=== PATIENT | female | born 1945 | race Caucasian/White ===

== ENCOUNTER 2023-04-16 09:55 | Emergency (ER) | payer MEDICARE, SELFPAY ==
[2023-04-16 10:07] VITALS: BP 167/87
--- NOTE | 2023-04-16 11:15 | ED.GENMED ---
History of Present Illness
<Stephy Avila PA-C - Last Filed: 04/16/23 17:21>
General
Chief Complaint: Musculo-Skeletal Complaint
Source: patient
Exam Limitations: none
Time Seen by Provider: 04/16/23 11:14
Nursing documentation reviewed up to this point in time: agreed with
Travel History
Have you had any contact with someone who has COVID-19?: Yes
Comment: covid+
Do you have any symptoms of coronavirus? Fever > 100 degrees, chills, cough, shortness of breath, sore throat, loss of taste or smell, muscle aches, or headache?: Yes
Symptoms:: cough cold
History of Present Illness
History of Present Illness:
78-year-old female with a past medical history of hypertension, CAD who presents to the emergency department today with right leg pain, right ankle pain, and right hip pain following a fall. She states that she was walking down the stairs in her
home in slippers when slipped and fell back on right side and subsequently slid down the stairs. She states that her right leg was bent behind her and she states that due to the pain, she was unable to get herself up at that time. Patient states
that she was on the ground for around 45 minutes before family came to help her. Once her family came, they helped her up and she was able to walk on her own without difficulty. She does state that she feels like when she walks, her right leg will
feel like it is going to 'give out'. At rest, she has no pain but does have pain when bearing weight. She denies her head loss of conscious, nausea, neck pain, abdominal pain. She does take 1 aspirin daily but is on no anticoagulants. She did test
positive for COVID yesterday and currently admits to a moderate headache and nausea as a result. She states that whenever she tries to eat or drink, feels very nauseated and will gag. Patient denies trouble breathing, chest pain. Patient denies
sore throat. Patient is also complaining of low back pain which is chronic for her. Patient requesting new follow-up for her pain because it has not been well-controlled for a period of time.
Review of Systems
<Stephy Avila PA-C - Last Filed: 04/16/23 17:21>
Review of Systems
All Other Systems: ROS reviewed and negative except as documented in HPI and ROS
Phy Exam
<Stephy Avila PA-C - Last Filed: 04/16/23 17:21>
Physical Exam
Physical Exam:
General: Patient is well-appearing and in no acute distress
Skin: Warm and dry, scattered abrasions on the right ankle
Head: Normocephalic, atraumatic
Cardiac: Regular rate, no murmurs
Peripheral vascular: There is 2+ dorsalis pedis and posterior bilaterally, brisk cap refill in bilateral lower extremities
Pulm: Normal respiratory effort, no wheezes, rales, or rhonchi
Abdomen: No tenderness palpation
Musculoskeletal: Patient has tenderness with varus movement of the right ankle but no point tenderness of the lateral or medial malleolus. Anterior drawer testing of right ankle negative. No pain of the right hip with passive range of motion. No
tenderness to palpation of the right hip joint.
Neuro: patient awake and alert, CN II-XII intact, no focal neurologic defecits.
Course
<Stephy Avila PA-C - Last Filed: 04/16/23 17:21>
Orders/Labs/Results
Orders:
Orders
04/16/23 11:25
CR Hip - RT w/wo Pel 2-3 Vw* Urgent
Comment:
Reason For Exam: right hip pain following fall
Include a pelvis x-ray?: Yes
04/16/23 11:33
Acetaminophen [Tylenol] 650 mg PO NOW STA
CR Ankle - Right Min 3 Views * Urgent
Reason For Exam: right ankle pain following fall
04/16/23 11:37
Ondansetron HCl [Zofran] 4 mg PO NOW STA
04/16/23 12:35
Sumatriptan Succinate [Imitrex] 6 mg SC NOW STA
04/16/23 14:25
Case Management Consult ONCE
Case Management Consult: Discharge Planning
Vital Signs
Initial and Last Documented VS:
Initial Vital Signs
Temp Pulse Resp BP Pulse Ox
100.0 F 89 16 167/87 93
04/16/23 10:07 04/16/23 10:07 04/16/23 10:07 04/16/23 10:07 04/16/23 10:07
Last Documented Vital Signs
Temp Pulse Resp BP Pulse Ox
100.0 F 100 18 153/72 93
04/16/23 10:07 04/16/23 14:56 04/16/23 14:56 04/16/23 14:56 04/16/23 14:56
<Michel Cole MD - Last Filed: 04/16/23 18:52>
Orders/Labs/Results
Orders:
Orders
04/16/23 11:25
CR Hip - RT w/wo Pel 2-3 Vw* Urgent
Comment:
Reason For Exam: right hip pain following fall
Include a pelvis x-ray?: Yes
04/16/23 11:33
Acetaminophen [Tylenol] 650 mg PO NOW STA
CR Ankle - Right Min 3 Views * Urgent
Reason For Exam: right ankle pain following fall
04/16/23 11:37
Ondansetron HCl [Zofran] 4 mg PO NOW STA
04/16/23 12:35
Sumatriptan Succinate [Imitrex] 6 mg SC NOW STA
04/16/23 14:25
Case Management Consult ONCE
Case Management Consult: Discharge Planning
Vital Signs
Initial and Last Documented VS:
Initial Vital Signs
Temp Pulse Resp BP Pulse Ox
100.0 F 89 16 167/87 93
04/16/23 10:07 04/16/23 10:07 04/16/23 10:07 04/16/23 10:07 04/16/23 10:07
Last Documented Vital Signs
Temp Pulse Resp BP Pulse Ox
100.0 F 100 18 153/72 93
04/16/23 10:07 04/16/23 14:56 04/16/23 14:56 04/16/23 14:56 04/16/23 14:56
Consults
<Stephy Avila PA-C - Last Filed: 04/16/23 17:21>
Consults
Consults for patient: Case Management
<Stephy Avila PA-C - Last Filed: 04/16/23 17:21>
MDM/Problems Addressed
Differential Diagnosis Includes:
right ankle pain/hip pain: right ankle fracture, right ankle sprain/strain
headache: tension headache, migraine headache, dehydration
MDM/Problems Addressed:
headache
right ankle pain
right hip pain
Chronic conditions affecting care: HTN and CAD
Acute Exacerbation and/or Progression of Chronic Illness: HTN
<Stephy Avila PA-C - Last Filed: 04/16/23 17:21>
*Radiology
Radiology exam reviewed: radiology read reviewed
*Pulse Oximetry
Patient hypoxic: no
*Critical Care Note
Total Time (30-74mins, 75-104mins- exclusive of procedures): Not Applicable
Data Reviewed
Review of Other/Old Records Reveals: Records (Reviewed history and physical from PCP on 11/24/2017)
Source: patient and family
Prescriptions/Medications Considered But Not Given:
n/a
Further Testing Considered But Not Given:
FALL: This is a 78-year-old female with a past medical history of hypertension, CAD who is presenting to the emergency department today with right hip right ankle pain following a fall down the stairs. On physical exam, she is well appearing, and
has to pain with passive movement of the hip. She has some mild pain with varus/valgus movement of the ankle. She has some scattered abrasions on the lateral aspect of her right foot. She has no swelling or obvious deformity. Intact pulses and
sensation. X-rays show no acute fracture. Patient was able to walk without difficulty with nursing. Patient lives in a two-story home with her who also has mobility issues, case management came to see the patient to help set up a PT home
eval. However, patient saw PT a few months ago for her back and will follow up with them for an updated eval. Patient states that her lower back pain has been poorly controlled for many years and is now requesting follow up. I gave patient follow up
with Dr. Hernández and patient will make an appointment soon.
HEADACHE/NAUSEA/COVID STATUS: Initially attempted to treat headache with Tylenol however patient refuses and states that she needs something stronger. We gave her 1 Imitrex which significantly improved her symptoms and resolved her headache.
Patient has also had nausea difficulty tolerating p.o. intake associated with her COVID-positive status. We did give patient Zofran here in the emergency department. After this, patient states that she feels a lot better and has been able to
tolerate p.o. intake here without any difficulties. Patient has not had any episodes of vomiting here in the department. She is stable or discharge at this point. She has been sent home with zofran and Imitrex
<Stephy Avila PA-C - Last Filed: 04/16/23 17:21>
Update Note
Update Note:
Patient refused Tylenol for her headache. Patient given Imitrex. Patient states that PO intake makes her nauseous. Zofran given and will trial PO intake.
1:40 pm-- nursing notes that patient is able to tolerate PO fluids well. Her x-rays do not show any evidence of fracture. Nursing was able to walk patient and patient was able to walk without any difficulties
ED Attending Note
<Stephy Avila PA-C - Last Filed: 04/16/23 17:21>
-
Portions of this chart may have been created with voice recognition software.� Occasional wrong word or��sound alike� substitutions may have occurred due to the inherent limitations of voice recognition software.
<Michel Cole MD - Last Filed: 04/16/23 18:52>
ED Attending Note
Patient seen and examined by attending physician: Yes
ED Attending Note:
Patient presents to ED for evaluation secondary to right leg pain after losing balance and falling onto her side, while walking down the steps this morning. Of note, patient recently tested positive for COVID-19, which has caused decreased appetite
and exacerbation of her migraine headache, unrelieved with [id number] medications. Denies vomiting or diarrhea. Denies coughing. Denies sore throat. Denies chest pain or shortness of breath. Denies loss of sensation or weakness. Denies
back pain. Denies head injury from the fall.
Physical Exam
General: mild painful distress, not acutely ill. afebrile
Head: nc/at. eomi
Neck: supple. no meningeal signs.
Heart: s1/s2 regular rate and rhythm, no murmur. equal radial pulses.
Lungs: no acute respiratory distress. clear bilaterally
Abdomen: normal bowel sounds. not tender.
Neuro: alert and oriented. no focal neurological deficits
Skin: abrasion noted over right malleolus with minimal tenderness.
Psychiatric: well kept. interactive and cooperative
Extremities: no edema. no calf tenderness. hip able to be ranged without tenderness. negative straight leg raise test.
X-ray: No acute findings.
Headache with significant improvement after Imitrex administration. Patient is able to ambulate independently with steady gait prior to discharge. Patient will be discharged home in stable condition, to the care of her family, with recommendation
to follow-up with PCP as an outpatient.
Visiting RN offered to patient and family. However, as patient already has an outpatient PT set up, will just follow-up as an outpatient.
Discharge Plan
Departure
Patient Disposition: Home (Routine Discharge)
Date of Disposition: 04/16/23
Time of Disposition: 14:27
Patient with high blood pressure during this ER visit?: Yes
Condition: Good
Discharge Problem:
COVID-19, Fall
Instructions: COVID-19 (DC), BLOOD PRESSURE, Fall Prevention for Older Adults
Prescriptions:
New
sumatriptan succinate 50 mg tablet
50 mg PO ONCE PRN (Reason: migraine headache) Qty: 6 0RF
ondansetron HCl 4 mg tablet
4 mg PO Q8H PRN (Reason: nausea and vomiting) 4 Days Qty: 12 0RF
No Action
aspirin 325 MG tablet
325 mg PO DAILY
Patient Comments:
FOR THE LAST WEEK -PER DOCTOR ORDER
metoprolol succinate 50 MG tablet extended release 24 hr
50 mg PO DAILY
calcium 500 MG tablet
500 mg PO BID
chromium picolinate 200 MCG tablet
200 mcg PO DAILY
magnesium 250 MG tablet
250 mg PO BID
hydrochlorothiazide 25 MG tablet
25 mg PO HS
calcium phos,dibas-vitamin D3 1 UDTAB tablet
1 udtab PO DAILY
coenzyme [id number] E 1 CAP capsule
1 cap PO BID
Patient Comments:
NOT LATELY
fenofibrate nanocrystallized 145 MG tablet
145 mg PO DAILY
FISH OIL CONCENTRATE
1,200 mg PO DAILY
Patient Comments:
NOT LATELY
Vitamin B
1 tab PO DAILY
Referrals:
Donte Palacios I., [Family Provider] -
Lam Hernández MD [Active] - Call in 1-3 days for appt
Activity Restrictions/Additional Instructions:
Zofran and sumatriptan at your pharmacy. I recommended managing your headaches with ibuprofen and acetaminophen. Should you experience a headache that feels similar to the one today, you can take a sumatriptan tablet, please do not exceed one
tablet per day.
Please follow up with PT.
We have provided you with a referral for Dr. Hernández for your back pain.
Interventions
Interventions:
*Risk Screen - Suicide Last Done: 04/16/23 12:16
*General Assessment Last Done: 04/16/23 12:16
*Neglect/Abuse Screening Last Done: 04/16/23 12:16
ED- Fall Risk Assessment Last Done: 04/16/23 12:16
*ED COVID-19 Vaccine History Last Done: 04/16/23 10:07
*Nursing Disposition Last Done: 04/16/23 15:05
ED-Musculoskeletal Assessment Last Done: 04/16/23 12:16
Discharge Date and Time
Discharge Date/Time: 04/16/23 15:06
[2023-04-16] MEDS: ZOFRAN 4 MG PO (11:47)
[2023-04-16] MEDS: TYLENOL 650 MG PO (11:47)
[2023-04-16] MEDS: IMITREX 6 MG SC (12:50)
--- NOTE | 2023-04-16 14:35 | CM ---
CM reviewed medical records. CM met with patient and family in room. Patient confirmed that she has a outpatient script and facility for outpatient PT. Patient declined home care. CM updated ED PA with discharge plan.
[2023-04-16 14:56] VITALS: BP 153/72
== END 2023-04-16 15:06 | disposition home or self-care (01) ==
LOC: EMR 09:55
PROVIDERS: EMERGENCY PHYSICIAN Emergency Medicine; FAMILY PHYSICIAN Internal Medicine
DX: U07.1 COVID-19 (principal); W10.9XXA Fall (on) (from) unspecified stairs and steps, initial encounter; M79.604 Pain in right leg; M25.571 Pain in right ankle and joints of right foot; E86.0 Dehydration; I10 Essential (primary) hypertension; I25.10 Atherosclerotic heart disease of native coronary artery without angina pectoris; Z79.82 Long term (current) use of aspirin
CPT/HCPCS: 99283; 96372; 73502; 73610

== ENCOUNTER → 2023-12-20 14:56 | Outpatient (REF) | payer MEDICARE, SELFPAY | LOC: PAVMRI 14:56 | PROVIDERS: ATTENDING PHYSICIAN Physical Medicine & Rehabilitation | DX: M54.16 Radiculopathy, lumbar region (principal) | CPT/HCPCS: 72148 ==

== ENCOUNTER → 2024-12-04 12:50 | Outpatient (REF) | payer MEDICARE, SELFPAY | LOC: HWRCS 12:50 | PROVIDERS: ATTENDING PHYSICIAN Internal Medicine; FAMILY PHYSICIAN Internal Medicine | DX: I25.10 Atherosclerotic heart disease of native coronary artery without angina pectoris (principal); I10 Essential (primary) hypertension | CPT/HCPCS: 93306 ==

== ENCOUNTER → 2025-01-17 14:30 | Outpatient (REF) | payer MEDICARE, SELFPAY | LOC: HWWDC 14:30 | PROVIDERS: ATTENDING PHYSICIAN Internal Medicine | DX: Z12.31 Encounter for screening mammogram for malignant neoplasm of breast (principal) | CPT/HCPCS: 77063; 77067 ==